=== PATIENT | female | born 1965 | race Caucasian/White ===

== ENCOUNTER → 2020-09-16 16:01 | Outpatient (CLI) | payer OTHER, SELFPAY ==
[2020-09-16] MEDS: COVID-19 VACC #1, MRNA(MOD) 100 MCG/0.5 ML VIAL IM (16:08)
== END ==
PROVIDERS: Visit Provider Internal Medicine
DX: Z23 Encounter for immunization (principal)
CPT/HCPCS: 0011A; 91301

== ENCOUNTER → 2020-10-21 13:47 | Outpatient (CLI) | payer OTHER, SELFPAY ==
[2020-10-21] MEDS: COVID-19 VACC #2, MRNA(MOD) 100 MCG/0.5 ML VIAL IM (13:59)
== END ==
PROVIDERS: Visit Provider Internal Medicine
DX: Z23 Encounter for immunization (principal)
CPT/HCPCS: 0012A; 91301

== ENCOUNTER 2024-06-07 21:58 | Observation (INO) | payer OTHER, SELFPAY ==
[2024-06-07 22:11] VITALS: BP 218/89; PULSE 68; RESP 18; TEMP 37.2; O2SAT 94; BMI 55.9
--- NOTE | 2024-06-07 22:11 | DI.CT.S_ITS ---
PROCEDURE: CT STROKE INDICATIONS: left sided weakness TECHNIQUE: Noncontrast 4.5 mm thick angled axial sections acquired from the foramen magnum to the vertex, with coronal reformats. For radiation dose reduction, the following was used: automated exposure control, adjustment of mA and/or kV according to patient size. COMPARISON: None. FINDINGS: Image quality: Diagnostic. CSF spaces: Basal cisterns are patent. No extra-axial fluid collections. The ventricles are symmetric in size and shape. Brain: Area of hypoattenuation within the right posterior parietal lobe. No intracranial bleeds or masses. There is cerebral volume loss for age, with resultant ventricular and sulcal prominence. There are periventricular and deep white matter chronic small vessel ischemic changes. There is intracranial internal carotid artery atherosclerosis. Skull and face: Calvarium and visualized facial bones appear intact, without suspicious lesions. Sinuses: Visualized sinuses and mastoids are clear. IMPRESSION: Area of hypoattenuation within the right posterior parietal lobe, may represent a subacute infarct. Recommend MRI for further evaluation. No definite acute intracranial hemorrhage is identified. Findings discussed with Dr. Ruvalcaba at the time of dictation. This study fulfills neurological imaging criteria for inclusion or exclusion of acute stroke therapies based on available published neurological guidelines. Dictated by: Taz Canales M.D. on 06/07/2024 at 22:36 Approved by: Taz Canales M.D. on 06/07/2024 at 22:39
--- NOTE | 2024-06-07 22:11 | EKG_ITS ---
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
--- NOTE | 2024-06-07 22:12 | ED.NEUROSD ---
HPI - Neuro Symptoms/Deficit General Chief Complaint: Neuro Symptoms/Deficit Stated Complaint: Left side numb Time Seen by Provider: 06/07/24 22:03 History of Present Illness HPI Narrative: Patient is a 58-year-old female history of urinary incontinence, hypertension, hyperlipidemia comes into the ED from home via EMS for evaluation of numbness weakness to her left side. States it started proximally 45 minutes prior to arrival states it is now improved but has not completely resolved. States that she was getting up to walk when she felt a ?pop in her head, states that she started having some mild blurry vision states that she was having numbness weakness to her left face left arm and her left leg. States that symptoms have improved but is still there. On evaluation patient with a NIH of 0, patient noted to be hypertensive SBP 213, patient not tPA candidate at this time however given recent Neuro deficits symptoms as well as hypertensive stroke alert was called. Related Data Home Medications Medication Instructions Recorded Confirmed atenolol 50 mg tablet 50 mg PO DAILY 06/07/24 06/07/24 lisinopril 5 mg tablet 5 mg PO DAILY 06/07/24 06/07/24 sertraline 50 mg tablet 50 mg PO DAILY 06/07/24 06/07/24 Allergies Allergy/AdvReac Type Severity Reaction Status Date / Time No Known Drug Allergies Allergy Verified 06/07/24 22:49 Review of Systems Review of Systems Narrative: General: Denies fever, chills, weight loss HEENT: Denies headache, eye drainage, eye irritation, head trauma, sore throat, voice change Cardiovascular: Denies any chest pain, palpitations, shortness of breath, tachycardia Respiratory: Denies any shortness of breath, cough, wheeze, stridor GI/: Denies any abdominal pain, nausea, vomiting, diarrhea, bright red blood per rectum, melanotic stools, urinary frequency, urinary retention, dysuria, hematuria MSK: Denies any joint pain, muscle pains, swelling Skin: Denies any rashes, lesions, discoloration Neuro: Positive headache, blurry vision, left facial left upper extremity left lower extremity weakness tingling Psych: Denies SI/HI Patient History Surgical History (Updated 10/31/17 @ 06:19 by Conversion Provider) Status post appendectomy Family History (Updated 04/12/15 @ 00:00 by Conversion Provider) Brother Age: 57 Hypertension Brother Age: 54 Hypertension Father Heart disease Hypertension High cholesterol Mother Diabetes mellitus Hypertension Exam Narrative Exam Narrative: General: Cooperative, comfortable, well-developed, not in acute distress HEENT: Normocephalic, atraumatic, PERRLA, normal sclera, eyelids normal, Neck: Active full range of motion, atraumatic Chest: Normal to inspection, negative crepitus, no overlying erythema ecchymosis Respiratory: Normal respiratory effort, not in acute respiratory distress, clear to auscultation bilaterally negative cough, wheeze, tachypnea, rhonchi, rales Cardiology: Regular rate rhythm negative gallop, murmur, rubs GI/: Normal to inspection, soft, nonrigid, no tenderness to palpation, exam deferred MSK: Full range of active range of motion of all 4 extremities, atraumatic Skin: No rashes lesions noted Neuro: Alert awake oriented x3, moves all 4 extremities spontaneously, cranial nerves intact, able to answer all questions appropriately follows commands appropriately, NIH of 0 Psych: Cooperative, negative suicidal or homicidal ideations Initial Vital Signs Initial Vital Signs: Vital Signs Temperature 98.9 F 06/07/24 22:11 Pulse Rate 68 06/07/24 22:11 Respiratory Rate 18 06/07/24 22:11 Blood Pressure 218/89 H 06/07/24 22:11 Pulse Oximetry 94 06/07/24 22:11 Oxygen Delivery Method Room Air 06/07/24 22:11 Scores NIH Stroke Scale Level of Conciousness: Alert, keenly responsive Ask month/age: Answers both questions correctly. Open/close eyes, close hand: Performs both tasks correctly Best gaze horizontal: Normal Visual tolentino: No visual loss Facial palsy: Normal symetrical movement Left arm drift: No drift for full 10 sec Right arm drift: No drift for full 10 sec Left leg drift: No drift for full 5 sec Right leg drift: No drift for full 5 sec Limb ataxia: Absent Sensory on face/arms/legs: Normal, no sensory loss Best language: No aphasia, normal Dysarthria: Normal Extinction or inattention: No abnormality Total NIH Stroke scale score: 0 Course Orders Ordered: ED Orders 06/07/24 21:57 Complete Blood Count AUTO DIFF Stat Comprehensive Metabolic Panel Stat Ethanol (ETOH) Stat PTT Partial Thromboplastin Myron Stat Prothrombin Time INR Stat Troponin & CK Cardiac Panel Stat 06/07/24 22:[address] angio head and neck Stat EKG-12 Lead Stat 06/07/24 22:55 CXR [XR chest 1V] Stat 06/07/24 23:06 Urine Drug Screen, Rapid Stat 06/07/24 23:10 Urinalysis and Microscopic Stat Vital Signs Vital signs: Vital Signs - 8 hr 06/07/24 22:11 Temperature 98.9 F Pulse Rate 68 Respiratory Rate 18 Blood Pressure 218/89 H Pulse Oximetry 94 Oxygen Delivery Method Room Air MDM - Neuro Symptoms/Deficit Differential Diagnosis Differential diagnosis: Likely subarachnoid hemorrhage, cerebrovascular accident, transient cerebral ischemia and other Lab Data 06/07/24 21:57 06/07/24 21:57 Labs: Lab Results 06/07/24 06/07/24 Range/Units 21:57 23:06 WBC 8.0 (4.5-11.0) X10^3/uL RBC 5.27 H (4.0-5.2) X10^6/uL Hgb 15.8 (12.0-16.0) g/dL Hct 47.9 H (36-46) % MCV 90.8 (80-100) fL MCH 30.0 (26-34) PG MCHC 33.0 (30-36) % RDW 13.7 (11.6-14.8) % Plt Count 294 (150-400) X10^3/uL Neut % (Auto) 55.6 (50-75) % Lymph % (Auto) 32.3 (25-40) % [place] % (Auto) 9.5 (3-14) % Eos % (Auto) 2.0 (2-4) % Baso % (Auto) 0.6 (0-2) % Neut # (Auto) 4400 (8815-7992) /uL Lymph # (Auto) 2600 (5710-0250) /uL [place] # (Auto) 800 (0-900) /uL Eos # (Auto) 200 (0-450) /uL Baso # (Auto) 0 (0-100) /uL PT 12.3 (9.4-12.5) SECONDS INR 1.1 (0.9-1.3) APTT 36 (25.1-36.5) SECONDS Sodium 143 (137-145) mmol/L Potassium 3.7 (3.4-5.1) mmol/L Chloride 108 H (98-107) mmol/L Carbon Dioxide 22 (22-32) mmol/L BUN 21 H (7-17) mg/dL Creatinine 0.80 (0.52-1.04) mg/dL Estimated GFR > 60 (>60) mL/min BUN/Creatinine Ratio 26.3 H (6-22) Glucose 132 H (70-100) mg/dL Calcium 10.6 H (8.4-10.2) mg/dL Total Bilirubin 0.5 (0.2-1.3) mg/dL AST 66 H (14-36) IU/L ALT 72 H (<35) IU/L Alkaline Phosphatase 64 (38-126) U/L Total Creatine Kinase 69 (30-135) U/L Troponin I < 0.012 (0.01-0.034) ng/mL Total Protein 8.0 (6.3-8.2) g/dL Albumin 4.6 (3.5-5.0) g/dL Globulin 3.4 (1.7-4.1) g/dL Albumin/Globulin Ratio 1.4 (1.0-2.8) U Opiates 300ng/mL cut Negative (Negative) Ur Oxycodone Screen Negative (Negative) Urine Methadone Screen Negative (Negative) Ur Barbiturates Screen Negative (Negative) U Tricyclic Antidepress Negative (Negative) Ur Phencyclidine Scrn Negative (Negative) Ur Amphetamines Screen Negative (Negative) U Methamphetamines Scrn Negative (Negative) Ur MDMA Scrn (Ecstasy) Negative (Negative) U Benzodiazepines Scrn Negative (Negative) Urine Cocaine Screen Negative (Negative) U Marijuana (THC) Screen Negative (Negative) Urine pH TNP Urine Specific [place] TNP Ethyl Alcohol < 10 ( - 10) mg/dL Ur Creatinine TNP Imaging Data Chest x-ray: Radiologist's Impression: [address] [address] XRay Report Signed Patient: Lashell King MR#: [id number] : 1965 Acct:[id number] Age/Sex: 58 / F Date of Service: 06/07/24 Loc: ED Accession Number: [id number] Procedure: XR chest 1V Ordering Provider: Danish Ruvalcaba D.O. PROCEDURE: XR CHEST 1V INDICATIONS: stroke alert TECHNIQUE: One view of the chest was acquired. COMPARISON: None. FINDINGS: Surgical changes and devices: None. Lungs and pleura: Lungs are clear. No pleural effusions or pneumothorax. Mediastinum: Mediastinal contours appear normal. Heart size is normal. Bones and chest wall: No suspicious bony lesions. Overlying soft tissues appear unremarkable. IMPRESSION: No acute cardiopulmonary abnormality is seen. CT scan - head: Radiologist's Impression: [place] [address] CT Scan Report Signed Patient: Lashell King MR#: [id number] : 1965 Acct:[id number] Age/Sex: 58 / F Date of Service: 06/07/24 Loc: ED Accession Number: [id number] Procedure: CT Stroke Ordering Provider: Danish Ruvalcaba D.O. PROCEDURE: CT STROKE INDICATIONS: left sided weakness TECHNIQUE: Noncontrast 4.5 mm thick angled axial sections acquired from the foramen magnum to the vertex, with coronal reformats. For radiation dose reduction, the following was used: automated exposure control, adjustment of mA and/or kV according to patient size. COMPARISON: None. FINDINGS: Image quality: Diagnostic. CSF spaces: Basal cisterns are patent. No extra-axial fluid collections. The ventricles are symmetric in size and shape. Brain: Area of hypoattenuation within the right posterior parietal lobe. No intracranial bleeds or masses. There is cerebral volume loss for age, with resultant ventricular and sulcal prominence. There are periventricular and deep white matter chronic small vessel ischemic changes. There is intracranial internal carotid artery atherosclerosis. Skull and face: Calvarium and visualized facial bones appear intact, without suspicious lesions. Sinuses: Visualized sinuses and mastoids are clear. IMPRESSION: Area of hypoattenuation within the right posterior parietal lobe, may represent a subacute infarct. Recommend MRI for further evaluation. No definite acute intracranial hemorrhage is identified. CTA - brain/neck: Radiologist's Impression: [address] [address] [address] Scan Report Signed Patient: Lashell King MR#: [id number] : 1965 Acct:[id number] Age/Sex: 58 / F Date of Service: 06/07/24 Loc: ED Accession Number: [id number] Procedure: CT angio head and neck Ordering Provider: Danish Ruvalcaba D.O. PROCEDURE: CT ANGIO HEAD AND NECK INDICATIONS: left sided weakness TECHNIQUE: After the administration of intravenous contrast, 1 mm thick sections acquired from the aortic arch through the [place] of [place]. 3-dimensional loukjmo-pdqutltsx-rlmytivuvf (MIP) and/or volume rendering reformats were acquired of the central intracranial vasculature and neck separately. For radiation dose reduction, the following was used: automated exposure control, adjustment of mA and/or kV according to patient size. COMPARISON: None. FINDINGS: Image quality: Diagnostic. BRAIN: Please refer to same day CT of the head. HEAD CT ANGIOGRAPHY: Anterior circulation: Intracranial internal carotid arteries are normal in size and flow. The flow within the paired anterior cerebral arteries is normal and symmetric. The flow within the middle cerebral arteries is normal and symmetric. The anterior communicating artery is seen. No aneurysms are seen. Posterior circulation: Visualized portions of the vertebral arteries demonstrate normal caliber, and join to form a normal appearing basilar artery. Flow within the posterior cerebral arteries is normal and symmetric. No aneurysms are seen. NECK CT ANGIOGRAPHY: Carotid system: The great vessels demonstrate a conventional anatomy as they arise from the aortic arch. The origins of the common carotid arteries appear patent. The common carotid arteries demonstrate normal caliber and courses. The bifurcation regions are both widely patent. The internal carotid arteries demonstrate normal calibers and courses. Posterior circulation: The origins of the vertebral arteries both appear widely patent. The more superior extracranial portions of both vertebral arteries also demonstrate normal courses and calibers. They join to form a normal appearing basilar artery. Soft tissues: Visualized neck soft tissues demonstrate no suspicious abnormalities. Bones: No suspicious bony lesions. Visualized cervical spine appears normally aligned. IMPRESSION: No significant intracranial arterial abnormality is seen. No significant abnormality is seen within the arteries of the neck. ECG Data Interpretation: EKG interpreted ED physician sinuses 67 beats per minute, QTC 426, normal axis, nonspecific ST changes, no STEMI MDM Narrative Medical decision making narrative: Patient is a 58-year-old female history of hypertension hyperlipidemia urinary incontinence presents to the ED via EMS from home for evaluation of left facial left upper and left lower extremity weakness/tingling. Also states that she was having intermittent blurry vision started proximally 45 minutes prior to arrival. States that symptoms have improved but is not completely? back to baseline. Patient states that this started when she got up to walk and felt a ?pop in her head patient at time of initial evaluation NIH of 0, however patient noted to be hypertensive therefore stroke alert was called. 2239: Had discussion with the radiologist who states patient has a subacute infarct on the right post parietal no acute infarcts noted no hemorrhage noted does recommend follow up MRI given patient's symptoms. Given patient with CT scan showing subacute infarct as well as still some mild subjective weakness/decreased sensation, patient will be admitted to the hospital for TIA requiring MRI and echo. Call placed out to hospitalist for admission 0000: The patient's management plan was discussed Dr. Mccollum, who agrees to admit the patient to their service and assumes care of this patient at this time. Full admission orders will be placed by the primary team. Discharge Plan Departure Patient Disposition: Admitted as Observation Clinical Impression: Brain TIA
[2024-06-07 22:30] VITALS: BP 208/85; PULSE 66; RESP 18; O2SAT 97
[2024-06-07 22:41] LABS: INR 1.1 (0.9-1.3); Prothrombin Time 12.3 SECONDS (9.4-12.5)
[2024-06-07 22:42] LABS: Add Manual Diff / Slide Review NO; Basophils Absolute Auto 0 /uL (0-100); Basophils Percent Auto 0.6 % (0-2); Eosinophils Absolute Auto 200 /uL (0-450); Hematocrit 47.9 % (36-46); Hemoglobin 15.8 g/dL (12.0-16.0); Lymphocytes Absolute Auto 2600 /uL (1100-4500); Lymphocytes Percent Auto 32.3 % (25-40); Mean Corpuscular Volume 90.8 fL (80-100); Monocytes Absolute Auto 800 /uL (0-900); Monocytes Percent Auto 9.5 % (3-14); Neutrophils Absolute Auto 4400 /uL (1500-7000); Neutrophils Percent Auto 55.6 % (50-75); Platelet Count 294 X10^3/uL (150-400); Red Blood Cell Count 5.27 X10^6/uL (4.0-5.2); Red Cell Distribution Width 13.7 % (11.6-14.8)
[2024-06-07 22:44] LABS: PTT Partial Thromboplastin Tim 36 SECONDS (25.1-36.5)
[2024-06-07 22:48] LABS: Alanine Aminotransferase 72 IU/L (<35); Albumin 4.6 g/dL (3.5-5.0); Albumin Globulin Ratio 1.4 (1.0-2.8); Alkaline Phosphatase 64 U/L (38-126); Aspartate Aminotransferase 66 IU/L (14-36); BUN Creatinine Ratio 26.3 (6-22); Bilirubin Total 0.5 mg/dL (0.2-1.3); Blood Urea Nitrogen 21 mg/dL (7-17); Calcium 10.6 mg/dL (8.4-10.2); Carbon Dioxide 22 mmol/L (22-32); Chloride 108 mmol/L (98-107); Creatine Kinase 69 U/L (30-135); Estimated Glomerular Filt Rate > 60 mL/min (>60); Ethanol (ETOH) < 10 mg/dL; Globulin 3.4 g/dL (1.7-4.1); Glucose 132 mg/dL (70-100); Potassium 3.7 mmol/L (3.4-5.1); Sodium 143 mmol/L (137-145)
[2024-06-07 22:55] VITALS: PULSE 61; RESP 18; O2SAT 96
--- NOTE | 2024-06-07 22:55 | DI.RAD.S_ITS ---
PROCEDURE: XR CHEST 1V INDICATIONS: stroke alert TECHNIQUE: One view of the chest was acquired. COMPARISON: None. FINDINGS: Surgical changes and devices: None. Lungs and pleura: Lungs are clear. No pleural effusions or pneumothorax. Mediastinum: Mediastinal contours appear normal. Heart size is normal. Bones and chest wall: No suspicious bony lesions. Overlying soft tissues appear unremarkable. IMPRESSION: No acute cardiopulmonary abnormality is seen. Dictated by: Taz Canales M.D. on 06/07/2024 at 23:19 Approved by: Taz Canales M.D. on 06/07/2024 at 23:19
[2024-06-07 23:15] LABS: HEMOLYSIS < 15 (0-50); Troponin I < 0.012 ng/mL (0.01-0.034)
[2024-06-07 23:18] LABS: Urine Amphetamines Negative (Negative); Urine Barbiturates Negative (Negative); Urine Benzodiazepines Negative (Negative); Urine Cocaine Negative (Negative); Urine MDMA Negative (Negative); Urine Methadone Negative (Negative); Urine Methamphetamines Negative (Negative); Urine Opiates Negative (Negative); Urine Oxycodone Negative (Negative); Urine Phencyclidine Negative (Negative); Urine THC Negative (Negative); Urine Tricyclic Antidepressant Negative (Negative)
[2024-06-08] VITALS (9 sets, daily range): BP systolic 118–192; BP diastolic 68–81; PULSE 54–67; RESP 12–20; TEMP 35.6–36.4; O2SAT 94–98; BMI 55.9
[2024-06-08] MEDS: diphenhydrAMINE 50 MG/ML VIAL 25 MG IV (00:08)
[2024-06-08] MEDS: METOCLOPRAMIDE 10 MG/2 ML INJ IV (00:09)
--- NOTE | 2024-06-08 02:14 | DI.MRI.S_ITS ---
PROCEDURE: MR HEAD/BRAIN WO CON INDICATIONS: CVA TECHNIQUE: Non-contrast axial T1 spin echo, axial T2 fast spin echo, sagittal and axial FLAIR, coronal T2 fast spin echo, axial gradient echo, axial diffusion and ADC through the brain. COMPARISON: [facility], CT, CT ANGIO HEAD AND NECK, 06/07/2024, 22:20. [facility], CT, CT STROKE, 06/07/2024, 22:20. FINDINGS: Image quality: Excellent. CSF spaces: Ventricles appear symmetric in size and shape. Basal cisterns are patent. No extra-axial fluid collections. Brain: Diffusion restriction is seen within the right posterior temporal lobe involving the adjacent occipital lobe and inferior parietal lobe. There is mild associated T2/FLAIR hyperintense signal without significant mass effect. No hemorrhagic conversion is seen. No midline shift. There is cerebral volume loss for age. There are periventricular and deep white matter chronic small vessel ischemic changes. Brainstem appears normal. Skull and face: Calvarial bone marrow is normal in signal. Orbits are normal. Sinuses: Sinuses and mastoids are clear. IMPRESSION: Moderately-sized infarct involving the right posterior temporal lobe and adjacent portions of the right occipital and right parietal lobes. No significant mass effect or hemorrhagic conversion. Approved by: Tima Hall M.D. on 06/08/2024 at 9:01
--- NOTE | 2024-06-08 02:15 | DI.ECHO.S_ITS ---
[facility]---------+ [facility] : : [address] : : [place] : : [address] : : Phone: [phone] Echocardiogram Report + + :Name: AIRAM JOHN Study Date: 06/08/2024 Height: 67 in : :[facility] [place]: Weight: 357 lb: : Gender: Female BSA: 2.6 m2 : :: 1965 Age: 58 yrs : :Reason For Study: CVA : :Ordering Physician: WERNER : :NICHOLAS MCKAY Performed By: Suzy Jain : :Referring: NICHOLAS CARDENAS : + + Interpretation Summary The study quality was technically difficult. The ejection fraction is estimated to be 60-65%. No obvious LV apical clot. The right ventricle is borderline dilated. The right ventricular systolic function is normal. There is no obvious Doppler evidence for an interatrial shunt. Injection of contrast documented no obvious evidence of interatrial shunt, difficult visualization. All the valves were not well-visualized however no significant gross abnormalities seen. The IVC is of normal diameter and collapses greater than 50% with a sniff. This suggests a low right atrial pressure of 3 mm Hg. Procedure: A two-dimensional transthoracic echocardiogram with color flow and Doppler was performed. There is no prior echocardiogram noted for this patient. The study quality was technically difficult. The study quality was technically limited. The injection was performed through an intravenous line in the right arm. A contrast injection of Definity was performed to improve assessment for apical thrombus. The patient was in sinus bradycardia with heart rates between 53-62 bpm during the exam. Left Ventricle: The left ventricle is normal in size. The estimated left ventricular end diastolic volume is 109 ml. Wall thickness appears grossly normal. There is no thrombus. The ejection fraction is estimated to be 60-65%. There are no focal wall motion abnormalities. Diastolic parameters suggest a relaxation abnormality of the left ventricle, consistent with probable normal filling pressures. Right Ventricle: The right ventricle is borderline dilated. The right ventricular systolic function is normal. Atria: The left atrial size is normal. Right atrial size is normal. There is no obvious Doppler evidence for an interatrial shunt. Injection of contrast documented no obvious evidence of interatrial shunt, difficult visualization. Mitral Valve: The mitral valve is grossly normal. There is trace mitral regurgitation. Aortic Valve: The aortic valve is not well visualized. There is no hemodynamically significant valvular aortic stenosis. No aortic regurgitation is present. Tricuspid Valve: The tricuspid valve is not well visualized, but is grossly normal. Pulmonary artery pressures cannot be estimated because of the lack of a measurable TR jet velocity. Pulmonic Valve: The pulmonic valve is not well visualized. Great Vessels: The aortic root is not well visualized. The ascending aorta could not be visualized. The IVC is of normal diameter and collapses greater than 50% with a sniff. This suggests a low right atrial pressure of 3 mm Hg. Pericardium/ Pleura There is no pericardial effusion. There is no pleural effusion. MMode/2D Measurements & Calculations Ao Arch Diam (Prox Trans): 2.8 cm LA A2 area: 24.8 cm2 LA A4 area: 22.1 cm2 LA length (vol): 5.9 cm LA vol: 79.1 ml LA vol index: 30.6 ml/m2 RA long axis: 5.4 cm RVD1 (basal): 4.1 cm RA area: 19.5 cm2 TAPSE: 2.1 cm RA vol: 60.0 ml RA : 23.2 ml/m2 IVC diam: 1.7 cm Doppler Measurements & Calculations Ao V2 max: 153.3 cm/sec LVOT Max Manoj: 101.1 cm/sec Ao V2 mean: 109.4 cm/sec LV V1 max P.1 mmHg Ao max P.4 mmHg LV V1 VTI: 25.8 cm Ao mean P.2 mmHg sev ratio: 0.72 Ao V2 VTI: 35.6 cm MV E max manoj: 76.7 cm/sec MV A max manoj: 77.4 cm/sec MV E/A: 0.99 Med Peak E' Manoj: 8.2 cm/sec E/E' med: 9.4 Lat Peak E' Manoj: 6.9 cm/sec E/E' lat: 11.1 E/e' average: 10.2 MV dec time: 0.28 sec [place] Physician:01:04 PM
[2024-06-08] MEDS: atenoloL 50 MG TABLET PO ×2 (02:33→21:27)
[2024-06-08] MEDS: lisinopriL 20 MG TABLET PO (02:33)
[2024-06-08] MEDS: SERTRALINE 50 MG TABLET PO ×2 (02:33→21:27)
--- NOTE | 2024-06-08 07:28 | P.HP_ITS ---
History of Present Illness History of Present Illness Date Patient Seen: 06/08/24 Time Patient Seen: 02:00 Chief complaint: Left side numb Narrative: 58 y/o with PMH of HTN, HLD, depression, presented to ED after she developed left facial and left arm weakness, hours prior. This happened before on few occasions, according to the patient, affecting her left arm. ED workup shows grossly uncontrolled HTN and subacute Rt MCA ischemic CVA. NIH on admission 0. Placed in observation with Dx of TIA, CVA PFSH Surgical History Status post appendectomy Family History Brother Age: 57 Hypertension Brother Age: 54 Hypertension Father Heart disease Hypertension High cholesterol Mother Diabetes mellitus Hypertension Social History household members: children Smoking Status: Former smoker alcohol intake: current Meds Home Medications and Allergies Home Medications Medication Instructions Recorded Confirmed Type atenolol 50 mg tablet 50 mg PO BEDTIME 06/07/24 06/08/24 History lisinopril 5 mg tablet 5 mg PO BEDTIME 06/07/24 06/08/24 History sertraline 50 mg tablet 50 mg PO BEDTIME 06/07/24 06/08/24 History Allergies Allergy/AdvReac Type Severity Reaction Status Date / Time No Known Drug Allergies Allergy Verified 06/07/24 22:49 Review of Systems Cardiovascular Comments: w/o palpitations or chest pain Respiratory Comments: w/o dyspnea Psychiatric Comments: depression Exam Vital Signs (past 8 hours): - 06/08/24 00:30 06/08/24 00:50 06/08/24 02:33 Temperature 97.6 F Pulse Rate 61 67 63 Respiratory Rate 18 20 Blood Pressure 192/81 H 150/77 H 149/73 H Pulse Oximetry 95 98 Oxygen Flow Rate 0 06/08/24 04:00 Temperature 97.4 F L Pulse Rate 54 L Respiratory Rate 16 Blood Pressure 118/68 Pulse Oximetry 95 Oxygen Flow Rate 0 Oxygen Delivery Method Room Air Oxygen Flow Rate 0 Narrative Exam Narrative: in no distress Const Other: obese HENMT Other: oral crowding Resp Other: normal effort Cardio Other: RRR Neuro Other: w/o deficits Psych Other: lucid, appropriate mood and affect Objective ECG Impression: NSR Labs 06/07/24 21:57 06/07/24 21:57 Labs: Laboratory Results - last 24 hr 06/07/24 06/07/24 21:57 23:06 WBC 8.0 RBC 5.27 H Hgb 15.8 Hct 47.9 H MCV 90.8 MCH 30.0 MCHC 33.0 RDW 13.7 Plt Count 294 Neut % (Auto) 55.6 Lymph % (Auto) 32.3 [place] % (Auto) 9.5 Eos % (Auto) 2.0 Baso % (Auto) 0.6 Neut # (Auto) 4400 Lymph # (Auto) 2600 [place] # (Auto) 800 Eos # (Auto) 200 Baso # (Auto) 0 PT 12.3 INR 1.1 APTT 36 Sodium 143 Potassium 3.7 Chloride 108 H Carbon Dioxide 22 BUN 21 H Creatinine 0.80 Estimated GFR > 60 BUN/Creatinine Ratio 26.3 H Glucose 132 H Calcium 10.6 H Total Bilirubin 0.5 AST 66 H ALT 72 H Alkaline Phosphatase 64 Total Creatine Kinase 69 Troponin I < 0.012 Total Protein 8.0 Albumin 4.6 Globulin 3.4 Albumin/Globulin Ratio 1.4 U Opiates 300ng/mL cut Negative Ur Oxycodone Screen Negative Urine Methadone Screen Negative Ur Barbiturates Screen Negative U Tricyclic Antidepress Negative Ur Phencyclidine Scrn Negative Ur Amphetamines Screen Negative U Methamphetamines Scrn Negative Ur MDMA Scrn (Ecstasy) Negative U Benzodiazepines Scrn Negative Urine Cocaine Screen Negative U Marijuana (THC) Screen Negative Urine pH TNP Urine Specific [place] TNP Ethyl Alcohol < 10 Ur Creatinine TNP Assessment & Plan Assessment and plan (1) Brain TIA: Status: Acute (2) Chronic ischemic right MCA stroke: Status: Acute (3) Hypertensive urgency: Status: Acute (4) HLD (hyperlipidemia): Status: Acute Assessment & Plan narrative: TIA / Subacute Rt MCA CVA - echocardiogram with doppler, MRI brain - ASA 81 mg daily - lipid panel, A1C, TSH pending HTN Urgency - increased home Lisnopril - atenolol Depression - Zoloft DVT prophylaxis - Lovenox Time-Based Coding :: [TOTAL MINUTES] spent with patient and on the chart (including review of chart, obtaining history, exam, reviewing outside data, placing orders, documenting exam and treatment plan, and counseling patient) on [DATE].
[2024-06-08] MEDS: ENOXAPARIN 40 MG/0.4 ML SYRINGE SUBCUT ×2 (09:08→21:27)
[2024-06-08] MEDS: ASPIRIN EC 81 MG TABLET PO (09:08)
[2024-06-08 09:30] LABS: Add Manual Diff / Slide Review NO; Basophils Absolute Auto 0 /uL (0-100); Basophils Percent Auto 0.6 % (0-2); Eosinophils Absolute Auto 100 /uL (0-450); Eosinophils Percent Auto 1.2 % (2-4); Hematocrit 42.4 % (36-46); Hemoglobin 14.1 g/dL (12.0-16.0); Lymphocytes Absolute Auto 1800 /uL (1100-4500); Lymphocytes Percent Auto 25.5 % (25-40); Mean Corpuscular HGB Conc 33.1 % (30-36); Mean Corpuscular Hemoglobin 29.9 PG (26-34); Mean Corpuscular Volume 90.1 fL (80-100); Monocytes Absolute Auto 500 /uL (0-900); Monocytes Percent Auto 6.5 % (3-14); Neutrophils Absolute Auto 4700 /uL (1500-7000); Neutrophils Percent Auto 66.2 % (50-75); Platelet Count 242 X10^3/uL (150-400); Red Blood Cell Count 4.71 X10^6/uL (4.0-5.2); Red Cell Distribution Width 13.9 % (11.6-14.8); White Blood Cell Count 7.1 X10^3/uL (4.5-11.0)
[2024-06-08 09:38] LABS: Hemoglobin A1C% w Est Avg Glu 5.4 % (4.0-6.0)
[2024-06-08 09:55] LABS: BUN Creatinine Ratio 24.7 (6-22); Blood Urea Nitrogen 19 mg/dL (7-17); Calcium 9.7 mg/dL (8.4-10.2); Carbon Dioxide 28 mmol/L (22-32); Chloride 106 mmol/L (98-107); Cholesterol 220 mg/dL (140-199); Estimated Glomerular Filt Rate > 60 mL/min (>60); Glucose 126 mg/dL (70-100); HDL Cholesterol 42 mg/dL (40-60); HEMOLYSIS < 15 (0-50); LDL Cholesterol Calculated 157 mg/dL (<100); Potassium 4.3 mmol/L (3.4-5.1); Sodium 141 mmol/L (137-145); Triglycerides 104 mg/dL (35-150)
[2024-06-08 10:25] LABS: Thyroid Stimulating Hormone 3.98 uIU/mL (0.47-4.68)
--- NOTE | 2024-06-08 12:12 | P.HP_ITS ---
History of Present Illness History of Present Illness Date Patient Seen: 06/08/24 Time Patient Seen: 10:45 Date of Onset of Symptoms: 06/07/24 Chief complaint: Left side numb Narrative: Chief complaint: Left side numb Narrative: 58 y/o with PMH of HTN, HLD, depression, presented to ED after she developed left facial and left arm weakness, hours prior. This happened before on few occasions, according to the patient, affecting her left arm. ED workup shows grossly uncontrolled HTN and subacute Rt MCA ischemic CVA. NIH on admission 0. Placed in observation with Dx of TIA, CVA Interval history: Patient is under the care of Janis Cueto PA-C and states he has not had regular primary care provider visit for several years, tending to avoid medical care, but has been receiving prescriptions and been compliant as prescribed. She is certain that her symptoms started about 45 minutes before presentation, but notes that about 2 years ago she had similar left-sided weakness, thought that she might have a stroke at that time but did not seek medical care. She did not have any left-sided weakness or visual field impairment however until last evening. She reports ongoing left-sided discoordination and difficulty seeing things in her left visual field. [facility] Surgical History Status post appendectomy Family History Brother Age: 57 Hypertension Brother Age: 54 Hypertension Father Heart disease Hypertension High cholesterol Mother Diabetes mellitus Hypertension Social History household members: children Smoking Status: Former smoker alcohol intake: current Meds Home Medications and Allergies Home Medications Medication Instructions Recorded Confirmed Type atenolol 50 mg tablet 50 mg PO BEDTIME 06/07/24 06/08/24 History lisinopril 5 mg tablet 5 mg PO BEDTIME 06/07/24 06/08/24 History sertraline 50 mg tablet 50 mg PO BEDTIME 06/07/24 06/08/24 History Allergies Allergy/AdvReac Type Severity Reaction Status Date / Time No Known Drug Allergies Allergy Verified 06/07/24 22:49 Review of Systems Review of Systems ROS: Yes All systems reviewed with the patient and are negative except as otherwise documented Exam Vital Signs (past 8 hours): - 06/08/24 08:00 06/08/24 09:08 Temperature 96.1 F L Pulse Rate 60 Respiratory Rate 17 Blood Pressure 173/78 H 173/78 H Pulse Oximetry 97 Oxygen Flow Rate 0 Oxygen Delivery Method Room Air Oxygen Flow Rate 0 Narrative Exam Narrative: GENERAL: This is a well-nourished, well-developed patient, in no apparent distress. HEAD: Atraumatic. Normocephalic. No temporal or scalp tenderness. EYES: Pupils equal round and reactive. Extraocular motions intact. No scleral icterus. No injection or drainage. ENT: Mucous membranes pink and moist. NECK: Trachea midline. No JVD, bruits or lymphadenopathy. Supple, nontender, no meningeal signs. CARDIOVASCULAR: Regular rate and rhythm without murmurs, gallops, or rubs. RESPIRATORY: Clear to auscultation. GASTROINTESTINAL: Abdomen soft, non-tender, nondistended. EXTREMITIES: No clubbing, cyanosis, or edema. BACK: Nontender without deformity or crepitance. No flank tenderness. NEUROLOGIC: Alert, oriented, speech fluent, dense left visual field cut, full upper and lower motor strength, mild discoordination of the left arm with finger nose finger testing. DERMATOLOGIC: No rashes or skin lesions. Const Other: obese HENMT Other: oral crowding Resp Other: normal effort Cardio Other: RRR Neuro Other: w/o deficits Psych Other: lucid, appropriate mood and affect Objective ECG Impression: Normal sinus rhythm at 67bpm, minimal voltage criteria for LVH, Imaging *: Radiologist's impression: 1. Brain CT 06/07/2024: Area of hypoattenuation within the right posterior parietal lobe, may represent a subacute infarct. Recommend MRI for further evaluation. No definite acute intracranial hemorrhage is identified. 2. Head/neck CT angiography 06/07/2024: No significant intracranial arterial abnormality is seen. No significant abnormality is seen within the arteries of the neck. 3. Chest x-ray 06/07/2024: No acute cardiopulmonary abnormality is seen. 4. Brain MRI 06/08/2024: Moderately-sized infarct involving the right posterior temporal lobe and adjacent portions of the right occipital and right parietal lobes. No significant mass effect or hemorrhagic conversion. 5. Echocardiogram 06/08/2024: The study quality was technically difficult. The ejection fraction is estimated to be 60-65%. No obvious LV apical clot. The right ventricle is borderline dilated. The right ventricular systolic function is normal. There is no obvious Doppler evidence for an interatrial shunt. Injection of contrast documented no obvious evidence of interatrial shunt, difficult visualization. Atria: The left atrial size is normal. Right atrial size is normal. There is no obvious Doppler evidence for an interatrial shunt. Injection of contrast documented no obvious evidence of interatrial shunt, difficult visualization. All the valves were not well-visualized however no significant gross abnormalities seen. The IVC is of normal diameter and collapses greater than 50% with a sniff. This suggests a low right atrial pressure of 3 mm Hg. Labs 06/08/24 09:18 06/08/24 09:18 Labs: Laboratory Results - last 24 hr 06/07/24 06/07/24 06/08/24 21:57 23:06 09:18 WBC 8.0 7.1 RBC 5.27 H 4.71 Hgb 15.8 14.1 Hct 47.9 H 42.4 MCV 90.8 90.1 MCH 30.0 29.9 MCHC 33.0 33.1 RDW 13.7 13.9 Plt Count 294 242 Neut % (Auto) 55.6 66.2 Lymph % (Auto) 32.3 25.5 [place] % (Auto) 9.5 6.5 Eos % (Auto) 2.0 1.2 L Baso % (Auto) 0.6 0.6 Neut # (Auto) 4400 4700 Lymph # (Auto) 2600 1800 [place] # (Auto) 800 500 Eos # (Auto) 200 100 Baso # (Auto) 0 0 PT 12.3 INR 1.1 APTT 36 Sodium 143 141 Potassium 3.7 4.3 Chloride 108 H 106 Carbon Dioxide 22 28 BUN 21 H 19 H Creatinine 0.80 0.77 Estimated GFR > 60 > 60 BUN/Creatinine Ratio 26.3 H 24.7 H Glucose 132 H 126 H Hemoglobin A1c 5.4 Calcium 10.6 H 9.7 Total Bilirubin 0.5 AST 66 H ALT 72 H Alkaline Phosphatase 64 Total Creatine Kinase 69 Troponin I < 0.012 Total Protein 8.0 Albumin 4.6 Globulin 3.4 Albumin/Globulin Ratio 1.4 Triglycerides 104 Cholesterol 220 H LDL Cholesterol, Calc 157 H HDL Cholesterol 42 TSH 3.98 U Opiates 300ng/mL cut Negative Ur Oxycodone Screen Negative Urine Methadone Screen Negative Ur Barbiturates Screen Negative U Tricyclic Antidepress Negative Ur Phencyclidine Scrn Negative Ur Amphetamines Screen Negative U Methamphetamines Scrn Negative Ur MDMA Scrn (Ecstasy) Negative U Benzodiazepines Scrn Negative Urine Cocaine Screen Negative U Marijuana (THC) Screen Negative Urine pH TNP Urine Specific [place] TNP Ethyl Alcohol < 10 Ur Creatinine TNP Assessment & Plan Assessment & Plan narrative: Subacute right MCA CVA - Moderately-sized infarct involving the right posterior temporal lobe and adjacent portions of the right occipital and right parietal lobes, with left-sided dyscoordination, dense left hemianopsia, and cognitive deficits - ASA 81 mg daily - high-dose statin therapy - BP management - no evidence of diabetes, thyroid disease - monitor for atrial fibrillation on telemetry - PT/OT/speech evaluations - excellent candidate for inpatient rehabilitation HTN Urgency - increased home Lisinopril to 20mg daily - atenolol - allow permission hypertension in aftermath of stroke HLD - start high-dose atorvastatin 80mg daily Depression -sertraline per baseline Severe obesity, BMI 55.9 - Weight loss education provided. DVT prophylaxis - Lovenox Scores NIHSS Level of Conciousness: Alert, keenly responsive Ask month/age: Answers both questions correctly. Open/close eyes, close hand: Performs both tasks correctly Best gaze horizontal: Normal Visual tolentino: Complete hemianopia Facial palsy: Minor paralysis, flattened nasolabial fold, asymmetry on smiling Left arm drift: No drift for full 10 sec Right arm drift: No drift for full 10 sec Left leg drift: No drift for full 5 sec Right leg drift: No drift for full 5 sec Limb ataxia: Present in one limb Sensory on face/arms/legs: Normal, no sensory loss Best language: No aphasia, normal Dysarthria: Normal Extinction or inattention: No abnormality Total NIH Stroke scale score: 4 Quality MIPS - Admit I confirm the patient?s Advance Care Plan is present, Code status is documented, Surrogate decision maker is in patient?s record [If Yes, STOP here]: Yes MIPS - Meds 'Current medications' to include all prescriptions, [id number] products, herbals, cannabis/cannabidiol products, and vitamin/mineral/dietary (nutritional) supplements. I have utilized all available resources to obtain, update, or review the patient?s current medications. [If Yes, STOP here]: Yes PROFEE Charge Codes Initial inpatient/observation care: 35040
--- NOTE | 2024-06-08 14:57 | CM.DANOTE ---
B DCP Assessment Note Pt is a 58yo here with confirmed CVA. continues to display left sided weakness/visual field impairments. PCP Janis Cueto, however has not seen her in years. 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 pt lives in an apartment in [place] with adult children Carlotta and Jose. Indep at baseline. CVA confirmed with MRI. Per provider, pt likely excellent candidate for inpt rehab. PT/OT/speech evals pending, referral needed. [employer] unable to meet with pt today due to triaging needs. P: anticipate referral to acute rehab pending PT/OT evals. need pt preference/agreement. CM team will continue to follow closely. ROXANA Mercado Discharge Planning/Care Management CM Discharge Assessment Start: 06/08/24 14:52 Freq: Status: Active Protocol: Document 06/08/24 14:52 SL (Rec: 06/08/24 14:57 SL [id number]) Discharge Planning Assessment Assigned Automatic Spooler Operator ROXANA Amanda DPOA/Assigned Designee Name serge Laguerre Contact Information [phone] Advance Directives? No History Provided By Patient Prior Living Arrangements Apartment/Condo Household Members children Independent with ADL's Yes Is patient alert and oriented? Yes Comment likely canidate for acute rehab Discharge Plan Inpatient Rehab Unit Additional Comment PT/OT evals pending Review Status In Process Please Provide Date Initial DC 06/08/24 Assessment Was Performed Next Review Type Continued Stay Review
--- NOTE | 2024-06-08 15:20 | PT.IIE ---
Current Diagnoses Hyperlipidemia, unspecified (06/08/24) Transient cerebral ischemic attack, unspecified (06/08/24) Hypertensive urgency (06/08/24) Personal history of transient ischemic attack (TIA), and cerebral infarction without residual deficits (06/08/24) Surgical History (Last Reviewed 06/08/24 @ 12:13 by Louie Denis MD) Status post appendectomy Physical Therapy Inpatient Evaluation/Re-Eval M1 PT/OT-IP Prior Functional Status Start: 06/08/24 16:11 Freq: NEEDED Status: Active Protocol: Document 06/08/24 15:20 AB (Rec: 06/08/24 16:21 AB [id number]) Medical Review Prior Functional Status Medical History Reviewed Yes Communication able to make needs known Mobility and Gait pt stated that she was modified independent with all mobilities and ambulation without AD but uses a FWW for outdoor/long distance mobility Social History Household Members children Living Arrangements Apartment/Condo Number of Floors (Floors) One Floor Number of Stairs To Enter/Railing? 13 steps with L rail ascending to enter the apartment Home Environment Standard Height Toilet,Tub/ Shower Home Equipment Front Wheel Walker,Shower Seat without Backrest,Hand Held Shower Additional Social History Comment pt lives with her daughter and son M2 PT-IP Current Condition Start: 06/08/24 16:11 Freq: NEEDED Status: Active Protocol: Document 06/08/24 15:20 AB (Rec: 06/08/24 16:21 AB [id number]) Physical Therapy Current Condition Current Condition Evaluation Date 06/08/24 Treatment Diagnosis R CVA; difficulty in walking Onset Date 06/08/24 M3 PT-IP Subjective Start: 06/08/24 16:11 Freq: NEEDED Status: Active Protocol: Document 06/08/24 15:20 AB (Rec: 06/08/24 16:21 AB [id number]) Subjective Physical Therapy Visit Type Type Initial Evaluation Visit Start Time 15:20 Visit Stop Time 15:45 Number of [employer] 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 BP: 134/ 62 OH 58 bpm. obtained PLOF and home set up. pt stated that numbness is resolved but still has some visual problems . completed sit to stand from the chair mod I. pt ambulated to the bed without AD SBA ~ 15 ft and completed bed mobility mod I. pt agreed to ambulate in the hallway and do stairs. completed ~ 125 ft without AD SBA. presents with antalgic waddling gait but without LOB. completed up/down steps using L rail ascending SBA. completed 2 sets. pt ambulated back to her room and requested to use the toilet. completed toileting needs without assistance and was able to ambulate to the sink SBA and was able to complete handwashing SBA. pt ambulated back to her chair SBA. positioned on the chair. call light and table placed within reach. informed pt regarding mobility and no further PT needs at this time and pt agreed. informed nurse. Gait Assessment Gait Gait Assistance Required: Standby Assistance Assistive Devices Assistive Device None Orthotic/Prosthetic Devices or Brace: No Gait Deviations General Gait Pattern Antalgic,Decreased Stride Length,Decreased Feet Clearance Factors Limiting Gait Function Factors Limiting Gait Function Decreased Activity Tolerance, Poor Safety Awareness Stair Climbing Assessment Evaluation Level of Assist On Stairs Standby Assistance Devices Stair Climbing Assistive Devices Left Railing Technique/Endurance Stair Climbing Direction Ascend and Descend Stair Climbing Technique Step to Step Number of Steps Climbed 3 Query Text: Stair Climbing Set # Repetitions (reps) 2 PT-Balance Assessment Sitting Balance and Reactions Static Sitting Balance Ability Normal Dynamic Sitting Balance Ability Normal Standing Balance and Reactions Static Standing Balance Ability Good Dynamic Standing Balance Ability Good Device Used without AD M5 PT-IP Objective Assessments Start: 06/08/24 16:11 Freq: NEEDED Status: Active Protocol: Document 06/08/24 15:20 AB (Rec: 06/08/24 16:21 AB [id number]) Orientation Orientation/Cognition Level of Alertness Alert Orientation Name,Place,Situation Language Function Ability No Deficits Noted Safety Awareness Understands Safety Issues Memory Description No Deficits Noted Gross Range of Motion Lower Extremity ROM Assessment Within Functional Limits Strength Lower Extremity Strength Assessment Within Functional Limits Muscle Tone Muscle Tone WNL Yes M6 PT-IP Treatment Start: 06/08/24 16:11 Freq: NEEDED Status: Active Protocol: Document 06/08/24 15:20 AB (Rec: 06/08/24 16:21 AB [id number]) Physical Therapy Treatment Education Education Provided Safety M7 PT-IP Assessment and Plan Start: 06/08/24 16:11 Freq: NEEDED Status: Active Protocol: Document 06/08/24 15:20 AB (Rec: 06/08/24 16:21 AB [id number]) PT Summary Assessment and Plan Potential Rehabilitation Potential Good Status of Condition at Evaluation Stable Summary Impairments Balance,Coordination,Transfers ,Gait,Activity Tolerance Assessment Summary pt is a 58 y/o F who presented to the ED with c/o L sided weakness. pt admitted for R CVA. pt is modified independent with bed mobility, SBA for transfers and ambulation for safety but can be independent in her room. No further PT needs at this time . Frequency of Treatment Frequency Of Treatment Discharge Recommendations To Nursing Amount of Assist Needed Standby Assistance Discharge Recommendations Transportation Needs at Discharge Private Vehicle
[2024-06-08] MEDS: ATORVASTATIN 20 MG TABLET 80 MG PO (21:27)
[2024-06-09] VITALS (8 sets, daily range): BP systolic 104–151; BP diastolic 44–82; PULSE 53–65; RESP 17–20; TEMP 36.1–36.4; O2SAT 92–97
--- NOTE | 2024-06-09 05:27 | PC.NURSE ---
Patient's NIHSS = 2 for left visual cut which is improving slightly in the upper quadrant. Patient reports blurry vision is also improved.
[2024-06-09] MEDS: ENOXAPARIN 40 MG/0.4 ML SYRINGE SUBCUT ×2 (08:53→21:14)
[2024-06-09] MEDS: ASPIRIN EC 81 MG TABLET PO (08:54)
[2024-06-09] MEDS: lisinopriL 20 MG TABLET PO (08:54)
--- NOTE | 2024-06-09 12:09 | PM.PN.1 ---
Subjective Subjective Date Patient Seen: 06/09/24 Time Patient Seen: 09:10 Interval history: Narrative: 58 y/o with PMH of HTN, HLD, depression, presented to ED after she developed left facial and left arm weakness, hours prior. This happened before on few occasions, according to the patient, affecting her left arm. ED workup shows grossly uncontrolled HTN and subacute Rt MCA ischemic CVA. NIH on admission 0. Placed in observation with Dx of TIA, CVA Patient is under the care of Janis Cueto PA-C and states he has not had regular primary care provider visit for several years, tending to avoid medical care, but has been receiving prescriptions and been compliant as prescribed. She is certain that her symptoms started about 45 minutes before presentation, but notes that about 2 years ago she had similar left-sided weakness, thought that she might have a stroke at that time but did not seek medical care. She did not have any left-sided weakness or visual field impairment however until last evening. She reports ongoing left-sided discoordination and difficulty seeing things in her left visual field. Interval history: She reports her vision appears slightly improved on the left side, and also arm coordination and clock reading have improved but still having some difficulty reading and comprehension. Exam Vital Signs (past 8 hours): - 06/09/24 08:00 06/09/24 08:54 06/09/24 09:00 Temperature 97.0 F L Pulse Rate 53 L Respiratory Rate 17 Blood Pressure 118/44 L 151/79 H Pulse Oximetry 92 Oxygen Delivery Method Room Air Oxygen Flow Rate 0 Oxygen Delivery Method Room Air Oxygen Flow Rate 0 Narrative Exam Narrative: GENERAL: This is a well-nourished, well-developed patient, in no apparent distress. EYES: Pupils equal round and reactive. Extraocular motions intact. No scleral icterus. No injection or drainage. ENT: Mucous membranes pink and moist. NECK: Trachea midline. No JVD, bruits or lymphadenopathy. Supple, nontender, no meningeal signs. CARDIOVASCULAR: Regular rate and rhythm without murmurs, gallops, or rubs. RESPIRATORY: Clear to auscultation. GASTROINTESTINAL: Abdomen soft, non-tender, nondistended. EXTREMITIES: No clubbing, cyanosis, or edema. NEUROLOGIC: Alert, oriented, speech fluent, left visual field cut improved in the left superior visual field but still dense left inferior quadrantanopsia, full upper and lower motor strength, mild discoordination of the left arm with finger nose finger testing but improved. DERMATOLOGIC: No rashes or skin lesions. Const Other: obese HENMT Other: oral crowding Resp Other: normal effort Cardio Other: RRR Neuro Other: w/o deficits Psych Other: lucid, appropriate mood and affect Objective ECG Impression: Normal sinus rhythm at 67bpm, minimal voltage criteria for LVH, Imaging *: Radiologist's impression: 1. Brain CT 06/07/2024: Area of hypoattenuation within the right posterior parietal lobe, may represent a subacute infarct. Recommend MRI for further evaluation. No definite acute intracranial hemorrhage is identified. 2. Head/neck CT angiography 06/07/2024: No significant intracranial arterial abnormality is seen. No significant abnormality is seen within the arteries of the neck. 3. Chest x-ray 06/07/2024: No acute cardiopulmonary abnormality is seen. 4. Brain MRI 06/08/2024: Moderately-sized infarct involving the right posterior temporal lobe and adjacent portions of the right occipital and right parietal lobes. No significant mass effect or hemorrhagic conversion. 5. Echocardiogram 06/08/2024: The study quality was technically difficult. The ejection fraction is estimated to be 60-65%. No obvious LV apical clot. The right ventricle is borderline dilated. The right ventricular systolic function is normal. There is no obvious Doppler evidence for an interatrial shunt. Injection of contrast documented no obvious evidence of interatrial shunt, difficult visualization. Atria: The left atrial size is normal. Right atrial size is normal. There is no obvious Doppler evidence for an interatrial shunt. Injection of contrast documented no obvious evidence of interatrial shunt, difficult visualization. All the valves were not well-visualized however no significant gross abnormalities seen. The IVC is of normal diameter and collapses greater than 50% with a sniff. This suggests a low right atrial pressure of 3 mm Hg. Labs 06/08/24 09:18 06/08/24 09:18 Labs: Laboratory Results - last 24 hr 06/07/24 06/07/24 06/08/24 21:57 23:06 09:18 WBC 8.0 7.1 RBC 5.27 H 4.71 Hgb 15.8 14.1 Hct 47.9 H 42.4 MCV 90.8 90.1 MCH 30.0 29.9 MCHC 33.0 33.1 RDW 13.7 13.9 Plt Count 294 242 Neut % (Auto) 55.6 66.2 Lymph % (Auto) 32.3 25.5 [place] % (Auto) 9.5 6.5 Eos % (Auto) 2.0 1.2 L Baso % (Auto) 0.6 0.6 Neut # (Auto) 4400 4700 Lymph # (Auto) 2600 1800 [place] # (Auto) 800 500 Eos # (Auto) 200 100 Baso # (Auto) 0 0 PT 12.3 INR 1.1 APTT 36 Sodium 143 141 Potassium 3.7 4.3 Chloride 108 H 106 Carbon Dioxide 22 28 BUN 21 H 19 H Creatinine 0.80 0.77 Estimated GFR > 60 > 60 BUN/Creatinine Ratio 26.3 H 24.7 H Glucose 132 H 126 H Hemoglobin A1c 5.4 Calcium 10.6 H 9.7 Total Bilirubin 0.5 AST 66 H ALT 72 H Alkaline Phosphatase 64 Total Creatine Kinase 69 Troponin I < 0.012 Total Protein 8.0 Albumin 4.6 Globulin 3.4 Albumin/Globulin Ratio 1.4 Triglycerides 104 Cholesterol 220 H LDL Cholesterol, Calc 157 H HDL Cholesterol 42 TSH 3.98 U Opiates 300ng/mL cut Negative Ur Oxycodone Screen Negative Urine Methadone Screen Negative Ur Barbiturates Screen Negative U Tricyclic Antidepress Negative Ur Phencyclidine Scrn Negative Ur Amphetamines Screen Negative U Methamphetamines Scrn Negative Ur MDMA Scrn (Ecstasy) Negative U Benzodiazepines Scrn Negative Urine Cocaine Screen Negative U Marijuana (THC) Screen Negative Urine pH TNP Urine Specific Adin TNP Ethyl Alcohol < 10 Ur Creatinine TNP PFSH Surgical History Status post appendectomy Family History Brother Age: 57 Hypertension Brother Age: 54 Hypertension Father Heart disease Hypertension High cholesterol Mother Diabetes mellitus Hypertension Social History household members: children Smoking Status: Former smoker alcohol intake: current Assessment & Plan Assessment & Plan narrative: Subacute right MCA CVA - Moderately-sized infarct involving the right posterior temporal lobe and adjacent portions of the right occipital and right parietal lobes, with left-sided dyscoordination, persistent but improved left homonomys hemianopsia with improved left superior visual field testing, improved left arm coordination, and persistent cognitive comprehension deficits - ASA 81 mg daily - high-dose statin therapy atorvastatin 80mg daily - BP management - no evidence of diabetes, thyroid disease - monitor for atrial fibrillation on telemetry - PT/OT/speech evaluations - excellent candidate for inpatient rehabilitation HTN Urgency - increased home Lisinopril to 20mg daily - atenolol - allow permission hypertension in aftermath of stroke HLD - started on high-dose atorvastatin 80mg daily Depression -sertraline per baseline Severe obesity, BMI 55.9 - Weight loss education provided. DVT prophylaxis - Lovenox Team rounds conducted today with physical therapy, case management, discharge planning, pharmacy. PROFEE Charge codes Subsequent inpatient/observation care: [id number]
[2024-06-09] MEDS: INFLUENZA VACCINE QIV 0.5 ML SYRINGE IM (14:21)
--- NOTE | 2024-06-09 14:38 | CM.DPNOTE ---
INDRAP Cont Reviewed chart. Patient discussed in multidisciplinary rounds. Patient doing well functionally however still shows signs of cognitive impairment, delayed processing. Dr Denis feels patient would be a good candidate for inpatient rehab. Discussed recommendation for acute inpatient rehab with patient who is agreeable, patient is highly motivated and states interest in any recommended treatment that would allow for speedy recovery from this CVA. Referral faxed to Karen at [facility] inpatient rehab F [phone] per patient's preference. Need PT/OT/TUBE WRAPPER notes sent to Karen/[facility] Monday when available. Kolby at [facility] aware that current recommendation is for acute inpatient rehab. CM team following clinical course closely. Follow up needed 06/10. RASHID
[2024-06-09] MEDS: SERTRALINE 50 MG TABLET PO (21:14)
[2024-06-09] MEDS: atenoloL 50 MG TABLET PO (21:14)
[2024-06-09] MEDS: ATORVASTATIN 20 MG TABLET 80 MG PO (21:14)
[2024-06-10 03:00] VITALS: PULSE 58; RESP 18; TEMP 35.5; O2SAT 96
[2024-06-10 07:00] VITALS: BP 136/68; PULSE 56; RESP 18; TEMP 36.1; O2SAT 95
--- NOTE | 2024-06-10 07:47 | P.PN_ITS ---
Subjective Subjective Interval history: Summary: 58 y/o with PMH of HTN, HLD, depression, presented to ED after she developed left facial and left arm weakness, hours prior. This happened before on few occasions, according to the patient, affecting her left arm. ED workup shows grossly uncontrolled HTN and subacute Rt MCA ischemic CVA. NIH on admission 0. Patient is under the care of Janis Cueto PA-C and states he has not had regular primary care provider visit for several years, tending to avoid medical care, but has been receiving prescriptions and been compliant as prescribed. She is certain that her symptoms started about 45 minutes before presentation, but notes that about 2 years ago she had similar left-sided weakness, thought that she might have a stroke at that time but did not seek medical care. She did not have any left-sided weakness or visual field impairment however until last evening. She reports ongoing left-sided discoordination and difficulty seeing things in her left visual field. Interval history: She reports her vision appears slightly improved on the left side, and also arm coordination and clock reading have improved but still having some difficulty reading and comprehension. S: Some visual field issues, no problems with strength or speech. Exam Vital Signs (past 8 hours): - 06/10/24 03:00 Temperature 96 F L Pulse Rate 58 L Respiratory Rate 18 Pulse Oximetry 96 Oxygen Flow Rate 0 Oxygen Delivery Method Room Air Oxygen Flow Rate 0 Narrative Exam Narrative: NAD, alert and oriented. Fluent speech. Lungs are clear, normal rate and effort. Heart is regular, no murmur gallop or rub. Abdomen is soft, non distended. Extremities are free of edema. Normal strength arms and legs. Objective ECG Impression: Normal sinus rhythm at 67bpm, minimal voltage criteria for LVH, Imaging Multiple studies:: Radiologist's impression: 1. Brain CT 06/07/2024: Area of hypoattenuation within the right posterior parietal lobe, may represent a subacute infarct. Recommend MRI for further evaluation. No definite acute intracranial hemorrhage is identified. 2. Head/neck CT angiography 06/07/2024: No significant intracranial arterial abnormality is seen. No significant abnormality is seen within the arteries of the neck. 3. Chest x-ray 06/07/2024: No acute cardiopulmonary abnormality is seen. 4. Brain MRI 06/08/2024: Moderately-sized infarct involving the right posterior temporal lobe and adjacent portions of the right occipital and right parietal lobes. No significant mass effect or hemorrhagic conversion. 5. Echocardiogram 06/08/2024: The study quality was technically difficult. The ejection fraction is estimated to be 60-65%. No obvious LV apical clot. The right ventricle is borderline dilated. The right ventricular systolic function is normal. There is no obvious Doppler evidence for an interatrial shunt. Injection of contrast documented no obvious evidence of interatrial shunt, difficult visualization. Atria: The left atrial size is normal. Right atrial size is normal. There is no obvious Doppler evidence for an interatrial shunt. Injection of contrast documented no obvious evidence of interatrial shunt, difficult visualization. All the valves were not well-visualized however no significant gross abnormalities seen. The IVC is of normal diameter and collapses greater than 50% with a sniff. This suggests a low right atrial pressure of 3 mm Hg. Labs 06/08/24 09:18 06/08/24 09:18 [facility] Surgical History Status post appendectomy Family History Brother Age: 57 Hypertension Brother Age: 54 Hypertension Father Heart disease Hypertension High cholesterol Mother Diabetes mellitus Hypertension Social History household members: children Smoking Status: Former smoker alcohol intake: current Assessment & Plan Assessment & Plan narrative: Subacute right MCA CVA, present on admission and active. - Moderately-sized infarct involving the right posterior temporal lobe and adjacent portions of the right occipital and right parietal lobes, with left-sided dyscoordination, persistent but improved left homonomys hemianopsia with improved left superior visual field testing, improved left arm coordination, and persistent cognitive comprehension deficits - ASA 81 mg daily - high-dose statin therapy atorvastatin 80mg daily - BP management - no evidence of diabetes, thyroid disease - monitor for atrial fibrillation on telemetry - PT/OT/speech evaluations - excellent candidate for inpatient rehabilitation HTN Urgency, present on admission and active. - increased home Lisinopril to 20mg daily - atenolol - allow permission hypertension in aftermath of stroke HLD, present on admission and stable. - started on high-dose atorvastatin 80mg daily Depression, present on admission and stable. -sertraline per baseline Severe obesity, BMI 55.9, present on admission and stable. - Weight loss education provided. PLAN: -continue PT, OT speech. -continue medical therapy. Home vs Inpatient rehab (if insurance auth obtained). DVT prophylaxis - Lovenox Time-Based Coding :: [TOTAL MINUTES] spent with patient and on the chart (including review of chart, obtaining history, exam, reviewing outside data, placing orders, documenting exam and treatment plan, and counseling patient) on [DATE].
[2024-06-10] MEDS: ASPIRIN EC 81 MG TABLET PO (08:56)
[2024-06-10] MEDS: ENOXAPARIN 40 MG/0.4 ML SYRINGE SUBCUT (08:57)
[2024-06-10] MEDS: lisinopriL 20 MG TABLET PO (08:57)
[2024-06-10] MEDS: SODIUM CHLORIDE 0.9% FLUSH 10 ML IV (09:02)
[2024-06-10 11:00] VITALS: BP 143/71; PULSE 61; RESP 16; TEMP 35.8; O2SAT 96
--- NOTE | 2024-06-10 11:30 | OT.IP.EVAL ---
Current Diagnoses Hyperlipidemia, unspecified (06/08/24) Transient cerebral ischemic attack, unspecified (06/08/24) Hypertensive urgency (06/08/24) Personal history of transient ischemic attack (TIA), and cerebral infarction without residual deficits (06/08/24) Surgical History (Last Reviewed 06/10/24 @ 07:49 by Uday Baeza MD) Status post appendectomy Occupational Therapy Inpatient Evaluation/Re-Eval M1 PT/OT-IP Prior Functional Status Start: 06/08/24 16:11 Freq: NEEDED Status: Active Protocol: Document 06/10/24 11:44 CGR (Rec: 06/10/24 12:17 CGR [id number]) Medical Review Prior Functional Status Medical History Reviewed Yes Communication able to make needs known Mobility and Gait pt stated that she was modified independent with all mobilities and ambulation without AD but uses a FWW for outdoor/long distance mobility Activities of Daily Living and IADL's Pt was IND for all ADLs and IADLs. 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 Social History Household Members children Living Arrangements Apartment/Condo Number of Floors (Floors) One Floor Number of Stairs To Enter/Railing? 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 Additional Social History Comment pt lives with her daughter and son M2 OT-IP Current Condition Start: 06/10/24 11:44 Freq: Status: Active Protocol: Document 06/10/24 11:44 CGR (Rec: 06/10/24 12:17 CGR [id number]) Occupational Therapy Current Condition Current Condition Evaluation Date 06/10/24 Treatment Diagnosis subacute R MCA Diagnosis Onset Date 06/08/24 M3 OT- IP Subjective and Pain Start: 06/10/24 11:44 Freq: Status: Active Protocol: Document 06/10/24 11:44 CGR (Rec: 06/10/24 12:17 CGR [id number]) OT- Subjective Occupational Therapy Visit Type Type Initial Evaluation Visit Start Time 10:21 Visit Stop Time 11:30 Notes Pt sitting up in chair, very sleepy initially and states that she didn't sleep well last night. OT Pain Assessment Pain When Pain Assessed At Rest Pain Present Pain Present Denied Pain M4 OT- IP ADL's Start: 06/10/24 11:44 Freq: Status: Active Protocol: Document 06/10/24 11:44 CGR (Rec: 06/10/24 12:17 CGR [id number]) OT [id number] Comments OT Self-Feeding Comments not meal time OT ADL-Grooming General Evaluation Grooming Ability Independent Areas Needing Assistance Face Washing Comments OT Grooming Comments standing at sink OT ADL-Oral Care General Eval Oral Care Ability Independent Areas of Assistance Brushing Teeth Comments Oral Care Comments standing at sink OT ADL-Dressing General Eval Lower Body Dressing Ability Standby Assistance Areas Needing Assistance Socks Comments OT Dressing Comments socks donned seated in chair with difficulty OT ADL-Toileting General Evaluation Toileting Ability Independent Comments OT Toileting Comments urinaition seated on toilet OT ADL-Bathing Comments OT Bathing Comments not performed M5 OT- IP IADL's Start: 06/10/24 11:44 Freq: Status: Active Protocol: Document 06/10/24 11:44 CGR (Rec: 06/10/24 12:17 CGR [id number]) OT-Instrumental Activities of Daily Living Deficits IADL Deficits Identified No Deficits Home Safety Awareness Awareness of Need for Assistance at Home Good Awareness Ability to Problem Solve Emergency Able to Problem Solve Situations Medication Management Medication Management Comments New concerns regarding pt's ability to safely manage medications. Will defer to ST as they are performing cog assessment. Money Management Money Management Comments New concerns regarding pt's ability to safely manage money . Will defer to ST as they are performing cog assessment. Meal Preparation Meal Preparation Comments Some concerns with visual field cut for meal prep. Resource Specialist Teacher Resource Specialist Teacher No Deficits Identified Driving Driving Comments Pt will not longer be able to drive given new L visual field cut M6 OT- IP Functional Cognition Start: 06/10/24 11:44 Freq: Status: Active Protocol: Document 06/10/24 11:44 CGR (Rec: 06/10/24 12:17 CGR [id number]) Cognitive Factors Limiting Selfcare Function Cognitive Ability Level of Alertness Alert Patient Orientation Name,Age,Birthday,Month,Date, Year,Day of Week,Place, Situation Attention Span Ability Capable of Focused Attention, Capable of Sustained Attention Ability to Follow Commands Able to Follow One Step Commands with Increased Time, Able to Follow One Step Commands with Repetition Cognitive Comments Cognitive Assessment Comments Defer to ST for assessment. OT- Vision and Hearing OT- Hearing Assessment OT- Hearing Assessment WFL OT- Vision Assessment Visual Acuity Glasses All The Time Visual Attentiveness WFL Occular Pursuits Impaired Horizontal Visual Convergence WFL Visual [place] Impaired Diplopia Absent Vision Assessment Comments Pt presents with B eye L complete visual field cut. Pt also states that she feels like she can see red well but her ability to see green has diminished. M7 OT- IP Mobility and Balance Start: 06/10/24 11:44 Freq: Status: Active Protocol: Document 06/10/24 11:44 CGR (Rec: 06/10/24 12:17 CGR [id number]) OT-Transfer Assessment Sit to and From Stand Sit to and from Stand Standby Assistance Transfers Transfer Ability Standby Assistance Technique Transfer Destination Car,Toilet Transfer Technique Stand Step Pivot Devices Transfer Assistive Devices Gait Belt Comments Mobility Comments Pt tolerated mobility well in the now familiar environment of her room but with B knee pain. OT- Gait Assessment Comments Gait Ability Comments defer to P.T. OT- Balance Assessment Sitting Balance and Reactions Static Sitting Balance Ability Good Dynamic Sitting Balance Ability Good M8 OT- IP Objective Assessments Start: 06/10/24 11:44 Freq: Status: Active Protocol: Document 06/10/24 11:44 CGR (Rec: 06/10/24 12:17 CGR [id number]) OT Gross Range of Motion Upper Extremity Range of Motion Assessment Within Functional Limits OT Strength Upper Extremity Strength Assessment Within Functional Limits OT- Coordination Assessment Upper Extremity Finger to Nose Test Within Functional Limits Finger Tapping Test Within Functional Limits OT Sensation Assessment Comments Summary Comments Pt states that she has numbness to the L pinky and half of ring finger in a typical distribution. She also has numbness to the R thumb, pointer, middle and half of the ring finger that she thinks is from carpal tunnel. Edema Edema Absent M9 OT- IP Assessment and Plan Start: 06/10/24 11:44 Freq: Status: Active Protocol: Document 06/10/24 11:44 CGR (Rec: 06/10/24 12:17 CGR [id number]) OT Summary Assessment and Plan Potential Rehabilitation Potential Excellent Analytic Complexity at Evaluation Moderate Summary OT Impairments Balance,Sensation,Functional Cognition,Functional Mobility, Bathing,Shower Transfers, Activity Tolerance Progress Towards Goals Slow Progress due to Cognition Assessment Summary Pt presents as a moderate complexity evaluation s/p admit for new onset stroke symptoms. Pt presents on this date with complete L visual field cut and self reported cognitive deficits. Cognitive deficits will be assessed by ST. Pt's L visual field cut is likely to impact her mobility in unfamiliar locations to be tested further by P.T. on this date. Pt's new L visual field cut is a large barrier to her be independent in her driving, working, reading, cooking, medication management, and some self care. Pt is a great adapter and will be an excellent candidate for Acute Rehab. 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 Pt will benefit from the knowledge of a practiced rehab therapist specifically on her new vision deficits. Goals Self-Feeding Goal Independent Grooming Goal Independent Dressing Goal Independent Toileting Goal Independent Bathing Goal Independent Toilet Transfer Goal Independent Shower Transfer Goal Independent Days to Meet Goals 15 Frequency of Treatment Frequency Of Treatment Once a Day Treatment Plan OT Treatment Plan ADL Training,Functional Cognition Training,Functional Mobility,Vision Retraining, Patient/Family Education, Discharge Planning Other Treatment Recommendations and Next Vision activities Treatment Focus Discharge Recommendations OT Discharge Recommendations Acute Rehab Transportation Needs at Discharge Private Vehicle
--- NOTE | 2024-06-10 13:27 | PT.IPRE ---
Current Diagnoses Hyperlipidemia, unspecified (06/08/24) Transient cerebral ischemic attack, unspecified (06/08/24) Hypertensive urgency (06/08/24) Personal history of transient ischemic attack (TIA), and cerebral infarction without residual deficits (06/08/24) Surgical History (Last Reviewed 06/10/24 @ 07:49 by Uday Baeza MD) Status post appendectomy Physical Therapy Inpatient Evaluation/Re-Eval M1 PT/OT-IP Prior Functional Status Start: 06/08/24 16:11 Freq: NEEDED Status: Active Protocol: Document 06/10/24 12:00 MB (Rec: 06/10/24 13:27 MB [id number]) Medical Review Prior Functional Status Medical History Reviewed Yes Communication able to make needs known Mobility and Gait pt stated that she was modified independent with all mobilities and ambulation without AD but uses a FWW for outdoor/long distance mobility Activities of Daily Living and IADL's Pt was IND for all ADLs and IADLs. 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 Social History Household Members children Living Arrangements Apartment/Condo Number of Floors (Floors) One Floor Number of Stairs To Enter/Railing? 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 Additional Social History Comment pt lives with her daughter and son M2 PT-IP Current Condition Start: 06/08/24 16:11 Freq: NEEDED Status: Active Protocol: Document 06/08/24 15:20 AB (Rec: 06/08/24 16:21 AB [id number]) Physical Therapy Current Condition Current Condition Evaluation Date 06/08/24 Treatment Diagnosis R CVA; difficulty in walking Onset Date 06/08/24 M3 PT-IP Subjective Start: 06/08/24 16:11 Freq: NEEDED Status: Active Protocol: Document 06/10/24 12:00 MB (Rec: 06/10/24 13:27 MB [id number]) Subjective Physical Therapy Visit Type Type Re-Evaluation Visit Start Time 12:00 Visit Stop Time 12:10 Physical Therapy Visit Comments Patient Comments Agreeable to PT M4 PT-IP Mobility and Gait Start: 06/08/24 16:11 Freq: NEEDED Status: Active Protocol: Document 06/10/24 12:00 MB (Rec: 06/10/24 13:27 MB [id number]) PT-Transfer Assessment Sit to and From Stand Sit to and from Stand Independent Equipment Transfer Assistive Device None Orthotic/Prosthetic Devices or Brace: No Transfers Transfer Destination Chair Transfer Technique Ambulation Transfer Ability Level of Assist Standby Assistance Gait Assessment Gait Gait Assistance Required: Standby Assistance Distance (Feet) 75 Assistive Devices Assistive Device None Gait Deviations General Gait Pattern Antalgic,Decreased Stride Length,Decreased Feet Clearance,Lateral Trunk Lean, Step-to Gait,Wide Based Gait Factors Limiting Gait Function Factors Limiting Gait Function Decreased Activity Tolerance Comments Gait Comments Pt gait trains 75'x2 with SBA. She presents with B severe Trendelenburg gait and reports B knee pain and trouble. She is very dyspneic with gait distance. Pt is unable to tolerate some dynamic balance testing d/t B knee pain, increased body mass and FERNANDES. She occ reaches for side rail in hallway. Functional Assessments Other Functional Tests Performed Functional gait tasks: pt is unable to change gait speed and backwards stepping is slower d/t c/o orthopedic pain , head turns up and down and right and left do not cause imbalance, unable to try tandem gait given body habitus and knee pain M5 PT-IP Objective Assessments Start: 06/08/24 16:11 Freq: NEEDED Status: Active Protocol: Document 06/10/24 12:00 MB (Rec: 06/10/24 13:27 MB [id number]) Orientation Orientation/Cognition Comments Pt has trouble following commands today for coordination and balance testing and appears to have some cognitive challenges Gross Range of Motion Lower Extremity ROM Assessment Bilaterally Impaired Impairments Unable to clear either thigh of seat of chair in sitting Strength Lower Extremity Strength Assessment Bilaterally Impaired Hip B 3+/5 hip flexion Knee R knee extension 4/5 Coordination Assessment Gross Coordination Gross Coordination Impaired Assessment Foot Tapping Test Minimal Impairment Heel on Ye Test Minimal Impairment Coordination Comments Pt has trouble following commands and does have some body habitus challenges to hip flexion that must occur with LE coordination testing in sitting Muscle Tone Muscle Tone WNL Yes M6 PT-IP Treatment Start: 06/08/24 16:11 Freq: NEEDED Status: Active Protocol: Document 12/07/24 15:20 AB (Rec: 06/08/24 16:21 AB [id number]) Physical Therapy Treatment Education Education Provided Safety M7 PT-IP Assessment and Plan Start: 06/08/24 16:11 Freq: NEEDED Status: Active Protocol: Document 06/10/24 12:00 MB (Rec: 06/10/24 13:27 MB [id number]) PT Summary Assessment and Plan Potential Rehabilitation Potential Good Status of Condition at Evaluation Stable Summary Impairments Pain,ROM,Strength,Balance, Coordination,Transfers,Gait, Activity Tolerance Assessment Summary Pt is a 58 y/o female presenting with left sided visual field yinka post-stroke. 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 She does present with range, strength, balance and gait challenges and body habitus, c/o LE pain and severe FERNANDES limit functional gait assessment tasks today. Pt does present with cognitive processing challenges with PT coordination and balance testing today as well. Given age, previous I working status and visual and cognitive findings, feel pt is appropriate for acute rehab at d/c with a goal of return to I working status. Frequency of Treatment Frequency Of Treatment Discharge Recommendations To Nursing Amount of Assist Needed Standby Assistance Discharge Recommendations PT Discharge Recommendations Acute Rehab Transportation Needs at Discharge Private Vehicle
[2024-06-10 15:00] VITALS: BP 144/69; PULSE 58; RESP 12; TEMP 36.1; O2SAT 98
--- NOTE | 2024-06-10 16:21 | CM.DPNOTE ---
Addendum entered by ROXANA Mercado 06/10/24 16:29: CONCRETE FINISHING MACHINE OPERATOR cancelled referral with [facility]. Karen appreciative. SL Original Note: DCP Note CONCRETE FINISHING MACHINE OPERATOR reviewed EMR. per PT/OT/speech, continue to rec acute rehab for pt. Per Karen at [facility], can accept pt if Qi auths it. Multiple conversations with Qi CM Kolby. Per Kolby, while she does not have final say, pt will likely no be auth'd for INPT acute rehab. CONCRETE FINISHING MACHINE OPERATOR met with pt in room. relayed above information. would rather just go home today and not even stay another night to attempt INPT rehab. feels defeated and frustrated by chin. agreeable to this CONCRETE FINISHING MACHINE OPERATOR messaging TCM team- will need new SOC appt because it has been awhile since she's seen a doctor. CONCRETE FINISHING MACHINE OPERATOR updated provider about pt's new preference to dc home today. Provider plans to discharge her to home. CONCRETE FINISHING MACHINE OPERATOR messaged TCM team about SOC appt. P:anticipate dc home today with adult children support and OP f/u. no further CM needs identified at this time. will continue to follow as needed ROXANA Mercado
--- NOTE | 2024-06-10 16:47 | ST.IPIE ---
Visit Care Team Role Provider Type Danish Ruvalcaba DO Emergency Provider Physician Specialty: Emergency Medicine Address: [address] [place], [place] [address], [address] Fax: Email: [email or web address] MD Admit Provider Physician Attending Provider Specialty: Internal Medicine Address: [address] [place] [address], [id number] Email: [email or web address] Diagnoses Hyperlipidemia, unspecified (06/08/24) Transient cerebral ischemic attack, unspecified (06/08/24) Hypertensive urgency (06/08/24) Personal history of transient ischemic attack (TIA), and cerebral infarction without residual deficits (06/08/24) ST IP Initial Evaluation Report CARPENTER HELPER MAINTENANCE Adult Cognitive Linguistic Eval Start: 06/10/24 16:30 Freq: Status: Active Protocol: Document 06/10/24 16:30 CG (Rec: 06/10/24 16:47 CG [id number]) Adult Cognitive Linguistic Evaluation Session Time Visit Start Time 11:35 Visit Stop Time 12:05 Total Visit Minutes 30 Visit Information Visit Number 1 Insurance Information [place] Referral Referring Provider Dr. Denis Reason for Referral cognitive/visual attention deficits post CVA Setting Assessment Location Acute Care Visit Type Note Type Initial evaluation Next Note Type Next Note Type Discharge Summary Patient Information Identification Type Name Patient History Per H&P: 58 y/o with PMH of HTN, HLD, depression, presented to ED after she developed left facial and left arm weakness, hours prior. This happened before on few occasions, according to the patient, affecting her left arm. ED workup shows grossly uncontrolled HTN and subacute Rt MCA ischemic CVA. NIH on admission 0. Placed in observation with Dx of TIA, CVA Interval history: Patient is under the care of Janis Cueto PA-C and states he has not had regular primary care provider visit for several years, tending to avoid medical care, but has been receiving prescriptions and been compliant as prescribed. She is certain that her symptoms started about 45 minutes before presentation, but notes that about 2 years ago she had similar left-sided weakness, thought that she might have a stroke at that time but did not seek medical care. She did not have any left-sided weakness or visual field impairment however until last evening. She reports ongoing left-sided discoordination and difficulty seeing things in her left visual field. Pt reported to CARPENTER HELPER MAINTENANCE upon pt interview that she continues to have a visual deficit in left visual field as well as some difficulty with reading speed. She feels that composing spoken messages is more effortful than before CVA . Pt is the breadwinner for her family and is in charge of all IADLs independently including managing finances, planning meals, cooking, managing meds, managing appointments, etc. She works for the [employer] and her role consists of frequent desk work at a computer including planning events, reviewing contracts, reading and filling [place] spreadsheets, and communicating with partners throughout the state. 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 OT reported left visual field cut, mild numbness in hands, and mild weakness in left arm/hand. Pt reported that she is concerned about her cognition as the breadwinner for her family. She is concerned that she is not yet able to function independently at the necessary capacity for her job , and that there are still barriers to independence including visual neglect and remaining cognitive concerns r /t memory/attention. Mental Status Alert,Responsive,Cooperative Assessment Oral Motor Examination Completed No Results Oral motor structure and function appear WFL for speech and swallowing. Informal Assessment Receptive Language Normal Yes Expressive Language Normal Yes Pragmatic Language Normal Yes Speech Normal Yes Cognition Normal No Cognitive Impairment(s) Attention,Short-term memory Formal Assessment Standardized Test/Screener Type [facility] Mental Status (UMS) Administration Complete Results CARPENTER HELPER MAINTENANCE administered the SLUMS as well as the symbol trails subtest of the Cognitive- Linguistic Quick Test (CLQT). On the SLUMS, pt scored a 26/ 30, indicative of mild cognitive impairment. Pt demonstrated difficulty with recall of 5 items after a delay (she recalled 3 items) as well as difficulty with answering questions about a short story (pt answered What state did she live in? with the name of a city). On the trail making portion of the CLQT, pt scored a 7 out of 10. Her ability to complete the task was impacted by her initially not noticing a target shape on the left side of the stimulus page, which consequently affected following steps. Overall, pt's cognition appears mildly impaired, with deficits in short term memory and visual attention. Findings/Results Language Function Within functional limits Cognitive Function Mildly impaired Findings Pt presents with mild cognitive impairments, particularly in the areas of short term memory and visual attention. Given the demands of pt's career (including highly visual demands on screen, executive functioning demands for planning and organizing events, etc.), pt's deficits pose possible barriers to functional independence. She is not at functional baseline at this time and would benefit from an inpatient rehab setting to return to prior level of function with regards to occupational and cognitive status. Cognitive Communication Deficits Self-awareness of Cognitive- Situational awareness ( Communication Deficits recognition of problem in context;in real time) Concomitant Factors Concomitant Factors Visual field neglect Impact on Functioning Activity Limits/Particip.Rest. Mild: General Tasks and Demands Household Tasks Mod: Employment Community Other (comment) Comment Driving - may not see stimuli in left visual field Safety Risks Mild: Being Left Alone at Home Reacting to Emergency Mod: Traveling Alone in Community Prognosis Prognosis Good Plan of Care Speech-Language Treatment No Patient/Caregiver Education Described results of evaluation,Patient expressed understanding of evaluation Discharge Recommendations Inpatient rehab facility
--- NOTE | 2024-06-10 17:42 | P.DS_ITS ---
History of Present Illness History of Present Illness Chief complaint: Left side numb Narrative: From H&P: 58 y/o with PMH of HTN, HLD, depression, presented to ED after she developed left facial and left arm weakness, hours prior. This happened before on few occasions, according to the patient, affecting her left arm. ED workup shows grossly uncontrolled HTN and subacute Rt MCA ischemic CVA. NIH on admission 0. Placed in observation with Dx of TIA, CVA Interval history: Patient is under the care of Janis Cueto PA-C and states he has not had regular primary care provider visit for several years, tending to avoid medical care, but has been receiving prescriptions and been compliant as prescribed. She is certain that her symptoms started about 45 minutes before presentation, but notes that about 2 years ago she had similar left-sided weakness, thought that she might have a stroke at that time but did not seek medical care. She did not have any left-sided weakness or visual field impairment however until last evening. She reports ongoing left-sided discoordination and difficulty seeing things in her left visual field. Discharge Providers Provider Date of admission: 06/08/24 00:07 Discharge Date: 06/11/24 Consults: 06/08/24 11:05 Consult to Occupational Therapy Evaluate & Treat Comment: visual deficits post CVA Physician Instructions: Evaluate and treat Consult to Physical Therapy Evaluate & Treat Comment: Physician Instructions: Evaluate and Treat Consult to Speech Therapy Evaluate & Treat Comment: Physician Instructions: Evaluate and treat 06/10/24 11:57 Consult to Physical Therapy Evaluate & Treat Comment: Physician Instructions: Evaluate and Treat Discharge provider: Uday Baeza MD Summary Hospital Course Discharge Diagnosis: 1. Subacute right occipital-parietal CVA, present on admission and active. 2. HTN Urgency, present on admission and improved. - increased home Lisinopril to 20mg daily - allow permission hypertension in aftermath of stroke 3. HLD, present on admission and stable. - started on high-dose atorvastatin 80mg daily 4. Depression, present on admission and stable. -sertraline per baseline 5. Morbid obesity, BMI 55.9, present on admission and stable. Hospital Course: She was admitted and found to have evidence of a right temporoparietal infarct with the occipital involvement. Her primary findings were some neglect and left sided hemianopsia. She had no difficulties with speech, swallow or motor functions. Her gait was stable. She was evaluated by speech therapy and physical therapy as well as occupational therapy and efforts were made to see if we could get authorization for an inpatient rehab stay. Ultimately it seems that they would not approve this and the patient was also motivated to return home. She is not going to drive for the time being until follow up. We are recommending consideration of Neuro-Ophthalmology follow up for rehabilitation efforts. She will also be taking time away from work. Medication therapy: In reviewing indications for dual antiplatelet therapy guidelines indicate a minor stroke or TIA that is high risk. This is typically a NIH score of 5 or less. Her score does meet this criteria however the caveats is consideration of size and volume of stroke bed. It was felt that in her case, the risks of dual antiplatelet therapy outweigh the benefit with the general size of her cortical stroke in spite of her minor symptoms. For this reason monotherapy (ASA) is chosen. Status at Discharge Cognitive/behavioral status at discharge: oriented Functional status at discharge: independent ambulation Overall status at discharge: patient is progressing back to baseline Time Spent with Patient Time spent: Greater than 30 minutes Exam Vital Signs (past 8 hours): - 06/10/24 11:00 06/10/24 15:00 Temperature 96.4 F L 97.0 F L Pulse Rate 61 58 L Respiratory Rate 16 12 Blood Pressure 143/71 H 144/69 H Pulse Oximetry 96 98 Oxygen Flow Rate 0 0 Oxygen Delivery Method Room Air Oxygen Flow Rate 0 Narrative Exam Narrative: NAD, alert and oriented. Fluent speech. Lungs are clear, normal rate and effort. Heart is regular, no murmur gallop or rub. Abdomen is soft, non distended. Extremities are free of edema. Left visual field hemianopsia. Normal cranial nerves otherwise Normal arm strength and leg strength, normal gait. Objective Imaging Multiple studies:: Radiologist's impression: Brain MRI: Moderately-sized infarct involving the right posterior temporal lobe and adjacent portions of the right occipital and right parietal lobes. No significant mass effect or hemorrhagic conversion. Tele strips: NSR Chest x-ray: No acute cardiopulmonary abnormality is seen. Head and neck CTA: No significant intracranial arterial abnormality is seen. No significant abnormality is seen within the arteries of the neck. Brain CT:Area of hypoattenuation within the right posterior parietal lobe, may represent a subacute infarct. Recommend MRI for further evaluation. No definite acute intracranial hemorrhage is identified. Findings discussed with Dr. Ruvalcaba at the time of dictation. This study fulfills neurological imaging criteria for inclusion or exclusion of acute stroke therapies based on available published neurological guidelines. ECHO: The study quality was technically difficult. The ejection fraction is estimated to be 60-65%. No obvious LV apical clot. The right ventricle is borderline dilated. The right ventricular systolic function is normal. There is no obvious Doppler evidence for an interatrial shunt. Injection of contrast documented no obvious evidence of interatrial shunt, difficult visualization. All the valves were not well-visualized however no significant gross abnormalities seen. The IVC is of normal diameter and collapses greater than 50% with a sniff. This suggests a low right atrial pressure of 3 mm Hg. Labs 06/08/24 09:18 06/08/24 09:18 Labs: Chol 220 LDL 157 HDL 42 TSH 3.98 A1c: 5.4 PFSH Surgical History Status post appendectomy Family History Brother Age: 57 Hypertension Brother Age: 54 Hypertension Father Heart disease Hypertension High cholesterol Mother Diabetes mellitus Hypertension Social History household members: children Smoking Status: Former smoker alcohol intake: current Discharge Assessment & Plan Assessment and Plan Assessment: 1. Subacute right occipital-parietal CVA, present on admission and active. 2. HTN Urgency, present on admission and improved. - increased home Lisinopril to 20mg daily - allow permission hypertension in aftermath of stroke 3. HLD, present on admission and stable. - started on high-dose atorvastatin 80mg daily Plan of Treatment: She was stable for discharge home with close follow up with her PCP. She will likely benefit from outpatient speech therapy or consideration of Neuro- Ophthalmology outpatient rehabilitation services. Discharge Plan Discharge Plan Patient Disposition: Home Provider Discharge Comment: Stable for discharge home with close follow up. Discharge orders & Medications Prescriptions: New atorvastatin 20 mg Tablet 80 mg PO BEDTIME Qty: 30 2RF lisinopril 20 mg Tablet 20 mg PO DAILY Qty: 30 2RF aspirin 81 mg Tablet,Delayed Release (Dr/Ec) 81 mg PO DAILY Qty: 30 2RF Continued sertraline 50 mg tablet 50 mg PO BEDTIME atenolol 50 mg tablet 50 mg PO BEDTIME Discontinued lisinopril 5 mg tablet 5 mg PO BEDTIME Follow up/Referrals: Maylin Piper MD [Physician] - (Hospital FU (CVA)) Diet/Activity/Treatments Activity: as tolerated, avoid driving until follow up. Visit Report/Discharge Packet Stand Alone Forms: Patient Portal/API, Stroke Signs & Symptoms Discharge Data Attending Provider: Gold Romero Admit Date/Time: 06/08/24 00:07
== END 2024-06-10 18:52 | disposition home or self-care (01) ==
LOC: ED 23:35 → AC 06-08 12:31
PROVIDERS: Admitting Provider Internal Medicine; Emergency Provider Student in an Organized Health Care Education/Training Program; Visit Provider Internal Medicine
DX: I63.9 Cerebral infarction, unspecified (principal); I16.0 Hypertensive urgency; E78.5 Hyperlipidemia, unspecified; F32.A Depression, unspecified; E66.01 Morbid (severe) obesity due to excess calories; Z68.43 Body mass index [BMI] 50.0-59.9, adult; Z86.73 Personal history of transient ischemic attack (TIA), and cerebral infarction without residual deficits; Z87.891 Personal history of nicotine dependence; R29.704 NIHSS score 4
CPT/HCPCS: 36415; 70450; 70496; 70498; 70551; 71045; 80048; 80053; 80061; 80305; 80320; 82550; 82962; 83036; 84443; 84484; 85025; 85610; 85730; 90471; 90656; 92523; 93005; 93010; 96372; 96374; 96375; 97161; 97164; 97166; 97530; 97535; 99285; G0378; C8929; J1200; J1650; J2765; Q2038; Q9957; Q9967

== ENCOUNTER 2025-06-27 17:41 | Emergency (ER) | payer SELFPAY ==
[2024-06-08 01:00] VITALS: BMI 55.9
[2025-06-27 18:00] VITALS: BP 190/86; PULSE 58; RESP 20; TEMP 36.3; O2SAT 98; BMI 54.8
--- NOTE | 2025-06-27 18:06 | DI.RAD.S_ITS ---
PROCEDURE: XR FINGER LT MIN 2V INDICATIONS: laceration to left thumb with knife concern for artery knick TECHNIQUE: AP hand, 2 views of the left thumb finger(s) acquired. COMPARISON: None. FINDINGS: Bones: No fractures or dislocations. No suspicious bony lesions. Soft tissues: Soft tissue swelling of the thumb with overlying bandage. No metallic density retained foreign body. Evaluation for non metallic foreign body is degraded due to overlying bandage. IMPRESSION: No acute osseous abnormality. Soft tissue swelling and fluid in of the left thumb without metallic radiodense retained foreign body Dictated by: Joaquin Robison M.D. on 06/27/2025 at 18:30 Approved by: Joaquin Robison M.D. on 06/27/2025 at 18:31
[2025-06-27 21:11] VITALS: BP 175/78; PULSE 63; RESP 14; O2SAT 100
--- NOTE | 2025-06-28 00:30 | PC.NURSE ---
Assessment by Nurse completed after provider has completed sutures. See provider note for details. Laceration from new knife, pt states she was holding incorrectly. Laceration to left thumb.
--- NOTE | 2025-06-28 00:42 | ED_ITS ---
HPI - Extremity Injury (Upper) General Chief Complaint: Extremity Injury, Upper Stated Complaint: L thumb laceration Time Seen by Provider: 06/28/25 00:00 Source: patient Mode of arrival: Wheelchair History of Present Illness HPI narrative: 59-year-old woman with a history of hypertension hyperlipidemia using a new knife and has a 2 cm simple laceration in the palmar crease left thumb. It did look like there was initially some arterial bleeding that is now controlled. She is neurovascularly intact distally. This does not involve the nail bed. Related Data Previous Rx's ?Medication ?Instructions ?Recorded multivitamin (Daily Multi-Vitamin 1 tab PO DAILY #30 t abs 06/12/24 tablet) Disabled Parking Permit #1 ea 06/13/24 aspirin 81 mg tablet,delayed 81 mg PO DAILY #90 tabs 1 08/14/23 release atenolol 50 mg tablet 50 mg PO DAILY #30 tabs 06/03 08/27 atorvastatin 80 mg tablet 80 mg PO DAILY #30 tabs 06/03 08/27 lisinopril 20 mg tablet 20 mg PO DAILY #30 tabs 06/03 08/27 Allergies Allergy/AdvReac Type Severity Reaction Status Date / Time No Known Drug Allergies Allergy Verified 06/27/25 17:16 Review of Systems Review of Systems Narrative: Pertinent positive and negative findings as per HPI Patient History Medical History (Updated 06/28/25 @ 00:46 by Gavi David MD) Abnormal vocalization Bilateral primary osteoarthritis of knee Difficulty in walking Hypertension Depression Surgical History Status post appendectomy Family History Brother Age: 57 Hypertension Brother Age: 54 Hypertension Father Heart disease Hypertension High cholesterol Mother Diabetes mellitus Hypertension Social History household members: children Smoking Status: Former smoker alcohol intake: current Smoking Status: Former smoker Exam Initial Vital Signs Initial Vital Signs: Vital Signs Temperature 97.4 F L 06/27/25 18:00 Pulse Rate 58 L 06/27/25 18:00 Respiratory Rate 20 06/27/25 18:00 Blood Pressure 190/86 H 06/27/25 18:00 Pulse Oximetry 98 06/27/25 18:00 Oxygen Delivery Method Room Air 06/27/25 18:00 General: Alert appropriate in no acute distress Respiratory: Able to speak in full sentences, no obvious respiratory distress Skin: No obvious rashes, warm and dry Neurologic: Grossly intact no obvious asymmetries or abnormalities Psych: appropriate insight and affect, cooperative Extremity: Left thumb with a 2 cm simple laceration. No tendon involvement distal sensation is intact. The wound is clean Procedures Laceration Repair Left thumb: Time of procedure: 00:43 Site: hand Side (If applicable): left Size (cm): 2 Description: linear Depth: simple, single layer Local Anesthetic: lidocaine 1% Amount of anesthesia used (mL): 3 Pre-repair: wound explored, irrigated extensively and deep structures intact Skin layer closed with: nylon Skin layer suture size: 4-0 Number of sutures: 4 Course Orders Ordered: ED Orders 06/27/25 18:06 XR finger LT min 2V Stat Vital Signs Vital signs: Vital Signs - 8 hr 06/27/25 18:00 06/27/25 21:11 Temperature 97.4 F L Pulse Rate 58 L 63 Respiratory Rate 20 14 Blood Pressure 190/86 H 175/78 H Pulse Oximetry 98 100 Oxygen Delivery Method Room Air Room Air MDM - Extremity Injury (Upper) MDM Narrative Medical decision making narrative: 59-year-old woman presents with a simple laceration to her left thumb from a brand-new knife while chopping food in the kitchen. The wound itself is clean. X-ray shows no bony injury or foreign body in the wound itself. Digital block is placed and the wound is repaired without difficulty. There was no tendon involvement. Four sutures were placed and she tolerated procedure well Antibiotic ointment and Band-Aid were applied. Recommended sutures removed on or about July 04. Discussed signs and symptoms of infection and reasons to return to the emergency department. Patient is safe for discharge Discharge Plan Departure Patient Disposition: Home Clinical Impression: Laceration Instructions: DI for Laceration Repair -- Finger Activity Restrictions/Additional Instructions: Thank you for coming in today I am sorry your new knives proved to be so exceptionally sharp. Fortunately, you did not cut anything important, the tendons and nerves to the tip of your thumb are all intact. I placed for stitches to reapproximate the skin edges. Please keep a bit of antibiotic ointment and a Band-Aid over the wound. The sutures come out on or about July 04 If it seems like there is increasing pain, redness swelling or in discharge, you need to be seen and re-evaluated Prescriptions: No Action (DME) Disabled Parking Permit See Rx Instructions .ROUTE .MEDSUPPLY Qty: 1 0RF Rx Instructions: I find this person to be disabled aspirin 81 mg tablet,delayed release (DR/EC) 81 mg PO DAILY Qty: 90 2RF atenolol 50 mg tablet 50 mg PO DAILY Qty: 30 0RF Rx Instructions: Appointment required for further refills atorvastatin 80 mg tablet 80 mg PO DAILY Qty: 30 0RF Rx Instructions: Appointment required for further refills lisinopril 20 mg tablet 20 mg PO DAILY Qty: 30 0RF Rx Instructions: Appointment required for further refills multivitamin [Daily Multi-Vitamin] Tablet 1 tab PO DAILY Qty: 30 0RF Referrals: Maylin Piper MD [Primary Care Provider, Family Practice] Stand Alone Forms: Patient Portal/API
[2025-06-28] MEDS: BACITRACIN OINT 0.9 GM PCKT 1 APPLIC TOP (00:50)
[2025-06-28 01:04] VITALS: BP 196/90; PULSE 60; RESP 18; O2SAT 98
== END 2025-06-28 01:06 | disposition home or self-care (01) ==
PROVIDERS: Emergency Provider Emergency Medicine; PCP Family Medicine
DX: S61.012A Laceration without foreign body of left thumb without damage to nail, initial encounter (principal); I10 Essential (primary) hypertension; W26.0XXA Contact with knife, initial encounter
CPT/HCPCS: 12001; 73140; 99282; 99283